=== PATIENT | male | born 1960 | race Caucasian/White ===

== ENCOUNTER 2020-06-15 07:16 | Emergency (ER) | payer OTHER ==
[2020-06-15] MEDS: Nitroglycerin 0.4 MG Tab.SL SL PRN (07:25)
[2020-06-15] MEDS ORDERED: Nitroglycerin 0.4 MG Tab.SL ONE (07:40)
--- NOTE | 2020-06-15 07:45 | EDM.PDOC ---
ED HPI GENERAL MEDICAL PROBLEM - General Chief Complaint: General Stated Complaint: chest pain Time Seen by Provider: 06/15/20 07:16 Source of Information: Reports: Patient, RN History Limitations: Reports: No Limitations - History of Present Illness INITIAL COMMENTS - FREE TEXT/NARRATIVE: Pt arrived per self to ER for chest pain rated at a 5/10. He was seen four years ago for chest pain related to low hemoglobin. He woke up with the pain at about 3am. Patient is able to carry on a conversation will full sentences without shortness of breath. Patient states he is on coumadin, takes omeprazole for gerd, atorvastatin, had stents placed four years ago in right coronary artery. Onset: Today, Sudden Onset Date: 06/15/20 Onset Time: 03:00 Duration: Hour(s):, Getting Worse Location: Reports: Chest (left chest - sternal pain does not radiate) Quality: Reports: Other (crushing) Severity: Moderate Improves with: Reports: None Worsens with: Reports: None Context: Reports: Other (woke with the pain) Associated Symptoms: Denies: Confusion, Diaphoresis, Headaches, Nausea/Vomiting, Shortness of Breath, Syncope, Weakness Treatments MEDICAL EDUCATOR: Reports: Other (see below) (did not take anything prior to arrival) Chest Pain Score (Numeric/FACES): 4 - Related Data Allergies Allergy/AdvReac Type Severity Reaction Status Date / Time adhesive tape Allergy Unknown Rash Verified 06/15/20 07:38 Home Meds: Home Meds Furosemide 1 tab PO DAILY 06/15/20 [History] Metoprolol Tartrate 1 tab PO BID 06/15/20 [History] Nitroglycerin [Nitrostat] 0.4 mg SL ASDIRECTED PRN #1 bottle 06/15/20 [Rx] Pantoprazole 2 tab PO DAILY 06/15/20 [History] Potassium Chloride 1 tab PO DAILY 06/15/20 [History] Warfarin [Coumadin] 7.5 mg PO ASDIRECTED 06/15/20 [History] Warfarin [Coumadin] 10 mg PO ASDIRECTED 06/15/20 [History] atorvaSTATin [Lipitor] 1 tab PO BEDTIME 06/15/20 [History] ED ROS GENERAL - Review of Systems Review Of Systems: See Below Constitutional: Denies: Fever, Chills, Weakness, Fatigue, Night Sweats, Diaphoresis HEENT: Reports: No Symptoms Respiratory: Denies: Shortness of Breath, Wheezing, Pleuritic Chest Pain, Cough Cardiovascular: Reports: Chest Pain. Denies: Edema, Lightheadedness Endocrine: Reports: No Symptoms GI/Abdominal: Reports: No Symptoms : Reports: No Symptoms Musculoskeletal: Reports: No Symptoms Skin: Reports: No Symptoms Neurological: Reports: No Symptoms. Denies: Confusion, Dizziness, Headache, Numbness, Syncope, Tingling Psychiatric: Reports: No Symptoms Hematologic/Lymphatic: Reports: No Symptoms ED EXAM, GENERAL - Physical Exam Exam: See Below Exam Limited By: No Limitations General Appearance: Alert, WD/WN, Anxious, Obese Nose: Normal Inspection, Normal Mucosa, No Blood Throat/Mouth: Normal Inspection, Normal Lips, Normal Teeth, Normal Gums, Normal Oropharynx, No Airway Compromise Head: Atraumatic Neck: Normal Inspection, Supple, Non-Tender, Full Range of Motion Respiratory/Chest: No Respiratory Distress, Lungs Clear, Normal Breath Sounds, No Accessory Muscle Use, Chest Non-Tender Cardiovascular: Normal Peripheral Pulses, Regular Rate, Rhythm, No Edema, No Gallop, No JVD, No Murmur, No Rub GI/Abdominal: Normal Bowel Sounds, Soft, Non-Tender, No Organomegaly, No Distention, No Abnormal Bruit, No Mass (Male) Exam: Deferred Back Exam: Normal Inspection, Full Range of Motion Extremities: Normal Inspection, Normal Range of Motion, Non-Tender, No Pedal Edema, Normal Capillary Refill Neurological: Alert, Oriented, CN II-XII Intact, Normal Cognition, Normal Gait, Normal Reflexes, No Motor/Sensory Deficits Psychiatric: Normal Affect, Normal Mood Skin Exam: Warm, Dry, Intact, Normal Color, No Rash Lymphatic: No Adenopathy EKG INTERPRETATION EKG Date: 06/15/20 Time: 07:17 Rhythm: NSR Rate (Beats/Min): 73 P-Wave: Present QRS: Normal ST-T: Normal QT: Normal Comparison: No Change EKG Interpretation Comments: Normal sinus rhythm - No ST changes Course - Vital Signs Last Recorded V/S: Last Vital Signs Temp 36.3 C 06/15/20 08:15 Pulse 57 L 06/15/20 09:47 Resp 16 06/15/20 09:47 BP 102/64 06/15/20 09:47 Pulse Ox 97 06/15/20 09:47 - Orders/Labs/Meds Orders: Active Orders 24 hr Category Date Time Status EKG Documentation Completion [RC] ASDIRECTED Care 06/15/20 07:22 Active Chest 1V Frontal [CR] Stat Exams 06/15/20 07:32 Taken TROPONIN I [CHEM] Stat Lab 06/15/20 10:00 Ordered Sodium Chloride 0.9% [Normal Saline] 1,000 ml Med 06/15/20 08:30 Active IV ASDIRECTED Sodium Chloride 0.9% [Saline Flush] Med 06/15/20 07:32 Active 10 ml FLUSH ASDIRECTED PRN Peripheral IV Insertion Adult [OM.PC] Routine Oth 06/15/20 07:32 Ordered EKG 12 Lead [EK] Routine Ther 06/15/20 07:19 Ordered Medication Orders Sodium Chloride (Normal Saline) 1,000 mls @ 100 mls/hr IV ASDIRECTED ROSI Last Admin: 06/15/20 07:50 Dose: 100 mls/hr Documented by: BASHIR Sodium Chloride (Saline Flush) 10 ml FLUSH ASDIRECTED PRN PRN Reason: Keep Vein Open Last Admin: 06/15/20 07:50 Dose: 10 ml Documented by: BASHIR Labs: Laboratory Tests 06/15/20 06/15/20 06/15/20 Range/Units 08:20 08:31 08:31 WBC 7.7 (4.0-11.0) K/uL RBC 4.44 L (4.50-6.50) M/uL Hgb 14.5 D (13.0-18.0) g/dL Hct 42.3 D (40.0-54.0) % MCV 95 D (76-96) fL MCH 32.7 H D (27.0-32.0) pg MCHC 34.3 D (31.0-35.0) g/dL RDW 13.0 (11.0-16.0) % Plt Count 186 D (150-400) K/uL MPV 11.0 H (6.0-10.0) fL Neut % (Auto) 75.4 H (45.0-70.0) % Lymph % (Auto) 16.0 L (20.0-40.0) % Metcalfe % (Auto) 6.6 (3.0-10.0) % Eos % (Auto) 1.7 (1.0-5.0) % Baso % (Auto) 0.3 (0.0-0.5) % Neut # (Auto) 5.81 (2.00-7.50) K/uL Lymph # (Auto) 1.23 L (1.50-4.00) K/uL Metcalfe # (Auto) 0.51 (0.20-0.80) K/uL Eos # (Auto) 0.13 (0.04-0.40) K/uL Baso # (Auto) 0.02 (0.02-0.10) K/uL PT (9.0-11.5) sec INR (1.0-3.5) Sodium (136-145) mmol/L Potassium (3.5-5.1) mmol/L Chloride (98-107) mmol/L Carbon Dioxide (21.0-32.0) mmol/L Anion Gap (5.0-15.0) mmol/L BUN (8-26) mg/dL Creatinine (0.70-1.30) mg/dL Est Cr Clr Drug Dosing mL/min Estimated GFR (MDRD) (>60) MLS/MIN BUN/Creatinine Ratio (6-25) Glucose (74-100) mg/dL Lactic Acid 1.8 (0.4-2.0) mmol/L Calcium (8.5-10.1) mg/dL Total Bilirubin (0.0-1.0) mg/dL AST (15-37) U/L ALT (12-78) U/L Alkaline Phosphatase (46-116) U/L Creatine Kinase (21-232) U/L Creatine Kinase Index CK-MB (CK-2) Troponin I < 0.017 D (0.000-0.060) ng/mL Total Protein (6.4-8.2) g/dL Albumin (3.4-5.0) g/dL Globulin (2.2-4.2) g/dL Albumin/Globulin Ratio (0.8-2.0) 06/15/20 06/15/20 06/15/20 Range/Units 08:31 08:31 08:31 WBC (4.0-11.0) K/uL RBC (4.50-6.50) M/uL Hgb (13.0-18.0) g/dL Hct (40.0-54.0) % MCV (76-96) fL MCH (27.0-32.0) pg MCHC (31.0-35.0) g/dL RDW (11.0-16.0) % Plt Count (150-400) K/uL MPV (6.0-10.0) fL Neut % (Auto) (45.0-70.0) % Lymph % (Auto) (20.0-40.0) % Metcalfe % (Auto) (3.0-10.0) % Eos % (Auto) (1.0-5.0) % Baso % (Auto) (0.0-0.5) % Neut # (Auto) (2.00-7.50) K/uL Lymph # (Auto) (1.50-4.00) K/uL Metcalfe # (Auto) (0.20-0.80) K/uL Eos # (Auto) (0.04-0.40) K/uL Baso # (Auto) (0.02-0.10) K/uL PT 31.5 H D (9.0-11.5) sec INR 3.1 D (1.0-3.5) Sodium 136 (136-145) mmol/L Potassium 4.1 (3.5-5.1) mmol/L Chloride 105 (98-107) mmol/L Carbon Dioxide 24.8 (21.0-32.0) mmol/L Anion Gap 10.3 (5.0-15.0) mmol/L BUN 21 D (8-26) mg/dL Creatinine 0.87 (0.70-1.30) mg/dL Est Cr Clr Drug Dosing 94.40 mL/min Estimated GFR (MDRD) > 60 (>60) MLS/MIN BUN/Creatinine Ratio 24.1 (6-25) Glucose 146 H (74-100) mg/dL Lactic Acid (0.4-2.0) mmol/L Calcium 8.2 L (8.5-10.1) mg/dL Total Bilirubin 0.6 (0.0-1.0) mg/dL AST 29 (15-37) U/L ALT 39 (12-78) U/L Alkaline Phosphatase 73 (46-116) U/L Creatine Kinase 425 H (21-232) U/L Creatine Kinase Index Cancelled CK-MB (CK-2) Cancelled Troponin I (0.000-0.060) ng/mL Total Protein 6.6 (6.4-8.2) g/dL Albumin 3.4 (3.4-5.0) g/dL Globulin 3.2 (2.2-4.2) g/dL Albumin/Globulin Ratio 1.1 (0.8-2.0) CBC shows slightly elevated Neutrophils with normal WBC Lactic acid within defined limits Initial Troponin I within defined limits CK elevate at 425 - is on a statin and has pain in his legs Pt/INR 3.1/31.5 - Stock Receiver keeps him between 2.5-3 - Patient states his diet was a bit off yesterday. Glucose 146 - patient states he is not diabetic but has been monitoring his A1C levels Meds: Medications Generic Name Dose Route Start Last Admin Trade Name Freq PRN Reason Stop Dose Admin Sodium Chloride 1,000 mls @ 100 mls/hr 06/15/20 08:30 06/15/20 07:50 Normal Saline IV 100 mls/hr ASDIRECTED ROSI Administration Sodium Chloride 10 ml 06/15/20 07:32 06/15/20 07:50 Saline Flush FLUSH 10 ml ASDIRECTED PRN Administration Keep Vein Open Discontinued Medications Generic Name Dose Route Start Last Admin Trade Name Freq PRN Reason Stop Dose Admin Acetaminophen 650 mg 06/15/20 08:51 06/15/20 08:55 Tylenol PO 06/15/20 08:52 650 mg NOW STA Administration - Radiology Interpretation Free Text/Narrative:: Initial impression - No signs of airway disease - Re-Assessments/Exams Free Text/Narrative Re-Assessment/Exam: 06/15/20 10:24 Continues to improve - States Chest pain is all but gone. He denies shortness of breath. Heart sounds S1S2 not murmur, or rub. Patient is resting comfortably, VSS O2 sat 97% Ra, BP 101/56 P 52 Regular. Educated patient to lab results and potential cause for chest pain. Waiting repeat Trop level - Pt will followup with operations support manager 06/16 for recommended stress test, coumadin evaluation. 06/15/20 10:40 Repeat Troponin came back the same as the initial draw. Patient encouraged to followup with operations support manager for stress test and follow up Coumadin dosing. Copy of labs sent with patient. 06/15/20 11:01 Provided Nitroglycerin SL tabs with directions to take at the onset of chest pain. RX information including SE and symptoms to report Departure - Departure Time of Disposition: 11:00 Disposition: Home, Self-Care 01 Condition: Fair Clinical Impression: ACS (acute coronary syndrome) - Discharge Information *PRESCRIPTION DRUG MONITORING PROGRAM REVIEWED*: No *COPY OF PRESCRIPTION DRUG MONITORING REPORT IN PATIENT ELLEN: No Instructions: Nonspecific Chest Pain, Adult, [id number], Acute Coronary Syndrome Referrals: PCP,None [Primary Care Provider] - 1 Day (Follow up with Stock Receiver - Dr. Fabián Davila with [facility] - stress test) Forms: ED Department Discharge Additional Instructions: Schedule follow up with Cardiology Fabián Davila [facility] [place] Care Plan Goals: Return to hospital with any questions or concerns or if symptoms worsen or return. Take tylenol as needed for pain. Sepsis Event Note (ED) - Focused Exam Vital Signs: Vital Signs Temp Pulse Resp BP Pulse Ox 06/15/20 09:47 57 L 16 102/64 97 06/15/20 08:37 62 96/65 06/15/20 08:26 61 12 100/66 97 06/15/20 08:15 36.3 C 61 12 97/65 95 06/15/20 08:05 61 12 100/60 97 06/15/20 07:55 65 12 100/60 96 06/15/20 07:34 36.3 C 74 12 104/60 95 06/15/20 07:30 36.1 C 71 16 129/74 96 - My Orders Last 24 Hours: My Active Orders 06/15/20 07:19 EKG 12 Lead [EK] Routine 06/15/20 07:22 EKG Documentation Completion [RC] ASDIRECTED 06/15/20 07:32 Chest 1V Frontal [CR] Stat Sodium Chloride 0.9% [Saline Flush] 10 ml FLUSH ASDIRECTED PRN Peripheral IV Insertion Adult [OM.PC] Routine 06/15/20 08:30 Sodium Chloride 0.9% [Normal Saline] 1,000 ml IV ASDIRECTED 06/15/20 10:00 TROPONIN I [CHEM] Stat - Assessment/Plan Last 24 Hours: My Active Orders 06/15/20 07:19 EKG 12 Lead [EK] Routine 06/15/20 07:22 EKG Documentation Completion [RC] ASDIRECTED 06/15/20 07:32 Chest 1V Frontal [CR] Stat Sodium Chloride 0.9% [Saline Flush] 10 ml FLUSH ASDIRECTED PRN Peripheral IV Insertion Adult [OM.PC] Routine 06/15/20 08:30 Sodium Chloride 0.9% [Normal Saline] 1,000 ml IV ASDIRECTED 06/15/20 10:00 TROPONIN I [CHEM] Stat
[2020-06-15] MEDS: Sodium Chloride 0.9% 10 ML Syringe FLUSH PRN (07:50)
[2020-06-15] MEDS: Sodium Chloride 0.9% 1,000 ML IV SCH (07:50)
[2020-06-15] MEDS: Acetaminophen 325 MG Tab PO STA (08:55)
[2020-06-15 09:48] VITALS: PULSE 57
[2020-06-15 10:29] VITALS: BP 122/66
--- NOTE | 2020-06-15 12:19 | CR ---
Date of Service: 06/15/20 Clinical Data: chest pain AP CHEST: Comparison is made to a prior exam dated 01/10/16. The heart size is normal. The lungs are clear. No pneumothorax. No pleural effusions. No evidence of acute intrathoracic disease. [id number] [facility]
== END 2020-06-15 10:50 | disposition home or self-care (01) ==
LOC: LB.ED 07:16
DX: I24.9 Acute ischemic heart disease, unspecified (principal); Z79.899 Other long term (current) drug therapy; Z91.048 Other nonmedicinal substance allergy status; Z79.01 Long term (current) use of anticoagulants
CPT/HCPCS: 36415; 71045; 80053; 82550; 83605; 84484; 85025; 85610; 93005; 99285-25; A9270-GY; J7030

== ENCOUNTER 2022-07-09 16:15 | Emergency (ER) | payer OTHER | END 2022-07-09 17:45 | disposition home or self-care (01) | LOC: LB.ED 16:15 | DX: F32.9 Major depressive disorder, single episode, unspecified (principal); I10 Essential (primary) hypertension; I25.2 Old myocardial infarction; Z91.048 Other nonmedicinal substance allergy status; Z79.899 Other long term (current) drug therapy; Z79.01 Long term (current) use of anticoagulants | CPT/HCPCS: 99281; 99284 ==